=== PATIENT | female | born 1950 | race Caucasian/White ===

== ENCOUNTER → 2018-08-16 | Outpatient (CLI) | payer MEDICARE, OTHER ==
[~2018-08-16] MED LIST: ACIPHEX 20 MG T20 MG; ADULT LOW DOSE81 MG PO; AMLODIPINE BESYL5 MG; AMOXICILLIN 50500 M1 PO; ASMANEX0.135 G1; ASPIRIN EC81 M1; ATENOLOL; ATENOLOL 25MG T25 M1 PO; ATENOLOL 25MG T25 MG PO; ATENOLOL 50 MG50 M1 PO; ATENOLOL 50MG T50 MG; ATIVAN0.5 MG PO; BENADRYL ALLERG25 MG PO; CEFDINIR300 MG PO; COUMADIN 1MG TAB1 M1; COUMADIN 5 MG TA5 M1 PO; DIAZEPAM 5 MG5 M1; ERYTHROMYCIN250 MG PO; FISH OIL 1,0001 EAC5 PO; FLEXERIL PO; FLONASE 0.05%50 MCG NASAL; FLONASE 0.05%50 MCG NS; HYDROCODON-ACE1 EAC5; LISINOPRIL10 MG; MEDROLDOSEPACK PO; MUCINEX22 ML; NABUMETONE 750750 M1 PO; NEXIUM20 M1; NORCO 5-325 TA1 EACH PO; NORVASC 5 MG TAB5 MG; OMEPRAZOLE 20 M20 MG; OMEPRAZOLE40 MG PO; OXYCODONE HCL5 M1 PO; OXYCONTIN CR 1010 M1 PO; OXYCONTIN10 M1 PO; OXYIR5 MG PO; PREDNISONE50 MG PO; PRINIVIL10 MG; PROAIR HFA8.5 GM IH; PROTONIX40 MG PO; PROVENTIL HFA6.7 G1 INH; RANITIDINE 150150 M1 PO; TEKTURNA HCT 11 EACH PO; VENTOLIN HFA 1818 GM INH; ZPAK PO
== END ==
LOC: M.RAD 13:01
DX: R07.9 Chest pain, unspecified (principal); R09.89 Other specified symptoms and signs involving the circulatory and respiratory systems

== ENCOUNTER → 2018-09-07 | Outpatient (CLI) | payer MEDICARE, OTHER | LOC: M.ULTRA 15:00 | DX: E07.9 Disorder of thyroid, unspecified (principal); R13.19 Other dysphagia ==